=== PATIENT | female | born 1985 | race African-American/Black ===

== ENCOUNTER 2024-06-27 11:45 | Observation (INO) | payer BC ==
[~2024-06-27] VITALS: Ht 162.6 cm; Wt 113.4 kg
--- NOTE | 2024-06-27 14:06 | DVHDS2 ---
Physician Discharge Progress N Final Diagnosis: dizzines 32wks vasovagal Operations or Procedures: Operations or Procedures nst,sono Condition on Discharge: Good Disposition: Home Discharge Instructions: Diet: Regular Activity: Light activity Medications: na Follow Up Care: Specialist: fu with ob jesus Discharge Statement: "Patient was advised to return to the ER or call 911 if any headaches, dizziness, shortness of breath, chest pain, abdominal pain, bleeding, fevers, or worsening of medical condition. Patient was counseled about treatment plan, medications, possible side effects, patientverbalized understanding. All questions were answered to the best of my ability. This discharge took greater then 30 minutes in planning, reviewing documentation , counseling the patient, and discussing with other team members." Visit Coding OBGYN Date of Service: Jun 27, 2024 Billing Provider: BETTYE WHITLOCK DO [employer]SE ARCHITECT Common Visit Codes: 62982-[id number] INP/OBS CARE (HIGH) GOLF COURSE ARCHITECT Procedure Codes: 05035-15- NON-STRESS TEST BETTYE WHITLOCK DO Jun 27, 2024 14:06
== END 2024-06-27 12:50 | disposition home or self-care (01) ==
LOC: UNDOADMOB 11:45 → LDRP 11:45
PROVIDERS: ADMIT Obstetrics & Gynecology; ATTEND Obstetrics & Gynecology
DX: O26.893 Other specified pregnancy related conditions, third trimester (principal); R42 Dizziness and giddiness; O99.323 Drug use complicating pregnancy, third trimester; F12.90 Cannabis use, unspecified, uncomplicated; Z3A.32 32 weeks gestation of pregnancy
CPT/HCPCS: 59025; 81002; 94760; G0378

== ENCOUNTER 2024-08-06 11:53 | Observation (INO) | payer BC ==
--- NOTE | 2024-08-06 13:00 | DVH ---
BIOPHYSICAL PROFILE HISTORY: DECRESED MOVEMENT TECHNIQUE: Multiple transabdominal real-time grayscale sonographic images through the gravid uterus of the fetus with duplex Doppler color flow and M-mode spectral analysis FINDINGS: BIOPHYSICAL PROFILE: breathing score: 2 movement score: 2 tone score: 2 Quantitative BELEN score: 2 (BELEN: 17.3 Cm.) Total score: 8/8 The cervix is not visualized. Single live fetus in cephalic presentation. heart rate 149 beats per minute. Grade 1 posterior placenta without previa or abruption Nuchal cord noted. IMPRESSION: 1. Biophysical profile score: 8/8. Nuchal cord noted.
[2024-08-06 13:24] LABS: Basophils # (auto) 0 10 ^3/uL (0-0.2); Basophils % (auto) 0.4 % (0.0-2.0); Eosinophils # (auto) 0 10 ^3/uL (0-0.8); Eosinophils % (auto) 0.6 % (0.0-7.0); Hematocrit 38.5 % (36.0-46.0); Hemoglobin 12.5 g/dL (12.2-16.2); Lymphocytes # (auto) 1.3 10 ^3/uL (0.4-5.4); Mean Corpuscular Hemoglobin 29.8 pg (28.0-32.0); Mean Corpuscular Hgb Conc. 32.5 g/dL (32.0-36.0); Mean Corpuscular Volume 91.9 fL (80.0-100.0); Monocytes # (auto) 0.7 10 ^3/uL (0-1.3); Monocytes % (auto) 8.2 % (0.0-12.0); Neutrophils # (auto) 5.9 10 ^3/uL (1.6-8.6); Neutrophils % (auto) 73.8 % (37.0-80.0); Nucleated Red Blood Cells % 0.2 %; Platelet Count (auto) 271 10^3/uL (140-450); Red Blood Cells 4.19 10^6/uL (4.0-5.20); Red Cell Distribution Width 14.3 % (11.8-14.3)
[2024-08-06 13:38] LABS: Urine Bacteria MOD /hpf (None Seen); Urine Blood Negative /uL (Negative); Urine Clarity Clear (Clear); Urine Color Yellow (Yellow); Urine Mucus FEW (None Seen); Urine Protein, UAD TRACE (Negative); Urine Specific Gravity 1.024 (1.001-1.035); Urine Squamous Epithelial Cell FEW /hpf (<5); Urine Urobilinogen Normal (Negative); Urine WBC 1 /HPF (0-5); Urine pH 6.5 (5.0-9.0)
[2024-08-06 13:41] LABS: INR 0.92 (0.9-1.15); Partial Thromboplastin Time 28.5 SEC (24.5-34.5); Prothrombin Time 9.8 sec (9.3-11.8)
[2024-08-06 13:42] LABS: Alanine Aminotransferase 14 U/L (7-40); Albumin 4.1 g/dL (3.2-4.8); Anion Gap 11 (5-15); Aspartate Aminotransferase 21 U/L (13-40); BUN/Creatinine Ratio 12.3 (10.0-20.0); Bilirubin, Total 0.4 mg/dL (0.2-1.0); Calcium 9.7 mg/dL (8.7-10.4); Carbon Dioxide 20 mmol/L (20-31); Chloride 104 mmol/L (98-107); Potassium 3.9 mmol/L (3.5-5.1); Total Protein 7.1 g/dL (5.7-8.2)
[2024-08-06 13:44] LABS: Alkaline Phosphatase 131 U/L (46-116); Blood Urea Nitrogen 9 mg/dL (9-23); Glucose 70 mg/dL (74-106); Sodium 135 mmol/L (136-145)
[2024-08-06 13:52] LABS: Amphetamine Screen, Urine Neg (NEGATIVE); Barbiturate Scree,Urine Neg (NEGATIVE); Benzodiazephine Screen, Urine Neg (NEGATIVE); Cannabinoid Screen, Urine Neg (NEGATIVE); Cocaine Screen, Urine Neg (NEGATIVE); Opiate Scree,Urine Neg (NEGATIVE); Phencyclidine Screen, Urine Neg (NEGATIVE)
--- NOTE | 2024-08-08 12:57 | DVHDS2 ---
Physician Discharge Progress N Final Diagnosis: dfm Operations or Procedures: Operations or Procedures nst reactive reviwed Condition on Discharge: Good Disposition: Home Discharge Instructions: Diet: Regular Activity: No Restrictions, As Tolerated Medications: na Follow Up Care: Specialist: 3d Discharge Statement: "Patient was advised to return to the ER or call 911 if any headaches, dizziness, shortness of breath, chest pain, abdominal pain, bleeding, fevers, or worsening of medical condition. Patient was counseled about treatment plan, medications, possible side effects, patientverbalized understanding. All questions were answered to the best of my ability. This discharge took greater then 30 minutes in planning, reviewing documentation, counseling the patient, and discussing with other team members." Visit Coding OBGYN Date of Service: August 06, 2024 Billing Provider: BETTYE WHITLOCK DO AIR TESTER Common Visit Codes: [id number] OBS CARE (HIGH) AIR TESTER Procedure Codes: 05931-47- NON-STRESS TEST BETTYE WHITLOCK DO August 08, 2024 12:57
== END 2024-08-06 13:15 | disposition home or self-care (01) ==
LOC: LDRP 11:53
PROVIDERS: ADMIT Obstetrics & Gynecology; ATTEND Obstetrics & Gynecology
DX: O36.8130 Decreased fetal movements, third trimester, not applicable or unspecified (principal); R79.1 Abnormal coagulation profile; R53.1 Weakness; Z3A.38 38 weeks gestation of pregnancy; Z79.899 Other long term (current) drug therapy; Z98.890 Other specified postprocedural states
CPT/HCPCS: 36415; 76818; 80053; 80307; 81001; 81002; 85025; 85610; 85730; 86703; 86762; 86780; 86803; 86850; 86900; 86901; 87086; 87340; 94760; G0378; 59025; 76819